=== PATIENT | female | born 1990 | race Caucasian/White ===

== ENCOUNTER 2018-03-23 17:42 | Outpatient (CLI) | payer OTHER ==
[2018-03-23 18:27] VITALS: BP 122/70
[2018-03-23] MEDS ORDERED: STADOL IV PRN (21:27)
[2018-03-23] MEDS ORDERED: LACTATED RINGERS 1,000 ML ONE (21:32)
[2018-03-23] MEDS ORDERED: XYLOCAINE 2% INFILTRATI ONE (21:57)
[2018-03-23] MEDS ORDERED: ZOFRAN IV PRN (21:57)
[2018-03-23] MEDS ORDERED: BRETHINE IVP PRN (21:57)
[2018-03-23] MEDS ORDERED: BRETHINE SUB-Q PRN (21:57)
[2018-03-23] MEDS ORDERED: MINERAL OIL PO PRN (21:57)
[2018-03-23] MEDS ORDERED: ePHEDrine SULFATE IV PRN (21:57)
[2018-03-23] MEDS ORDERED: LACTATED RINGERS 1,000 ML IV SCH (22:00)
[2018-03-23] MEDS ORDERED: PITOCin/NS 30 UNIT/500ML 30 UNITS/500 ML BAG IV SCH ×2 (22:00)
[2018-03-23] MEDS ORDERED: PITOCin/NS 20 UNIT/1000ML DRIP 20 UNITS/1,000 ML BAG IV SCH (22:00)
[2018-03-23] MEDS ORDERED: POLYCILLIN/NS 2 GM/100 ML 2 GM/100 ML BAG IV SCH (22:00)
[2018-03-24] MEDS ORDERED: AMPICILLIN/NS 1 GM/50 ML 1 GM/50 ML BAG IV SCH (02:00)
== END 2018-03-23 22:15 | disposition home or self-care (01) ==
LOC: TRG 17:42 → EDBD 17:42 → TRG 17:43
PROVIDERS: ATTEND Obstetrics & Gynecology
DX: O47.1 False labor at or after 37 completed weeks of gestation (principal); Z3A.38 38 weeks gestation of pregnancy
CPT/HCPCS: 59025; 96360; J7120

== ENCOUNTER 2018-03-24 05:33 | Inpatient (IN) | payer SELFPAY ==
[2018-03-24] MEDS ORDERED: BRETHINE SUB-Q PRN (07:38)
[2018-03-24] MEDS ORDERED: ePHEDrine SULFATE IV PRN ×2 (07:38→09:22)
[2018-03-24] MEDS ORDERED: XYLOCAINE 2% INFILTRATI ONE ×2 (07:38→19:43)
[2018-03-24] MEDS ORDERED: SUBLIMAZE IV PRN (07:38)
[2018-03-24] MEDS ORDERED: BRETHINE IVP PRN (07:38)
[2018-03-24] MEDS ORDERED: POLYCILLIN/NS 2 GM/100 ML 2 GM/100 ML BAG IV ONE (07:38)
[2018-03-24] MEDS ORDERED: STADOL IV PRN (07:38)
[2018-03-24 08:09] LABS: Hematocrit 33.9 % (30.3-42.9); Hemoglobin 11.1 gm/dl (10.1-14.3); Mean Corpuscular HGB Conc 33 % (30-34); Mean Corpuscular Hemoglobin 27 pg (28-32); Mean Corpuscular Volume 82 fl (79-97); Platelet Count 247 K/mm3 (140-440); Red Blood Count 4.12 M/mm3 (3.65-5.03); Red Cell Distribution Width 15.5 % (13.2-15.2)
[2018-03-24] MEDS: LACTATED RINGERS 1,000 ML IV SCH ×3 (08:12→13:05)
[2018-03-24] MEDS ORDERED: NARCAN 2 MG/2 ML IV PRN (09:22)
--- NOTE | 2018-03-24 09:24 | Anesthesia Consultation ---
Anesthesia Consult and Med Hx - Airway Anesthetic Teeth Evaluation: Good ROM Head & Neck: Adequate Mental/Hyoid Distance: Adequate Mallampati Class: Class II Intubation Access Assessment: Good - Pulmonary Exam CTA: Yes - Cardiac Exam Cardiac Exam: RRR - Pre-Operative Health Status ASA Pre-Surgery Classification: ASA2 Proposed Anesthetic Plan: Epidural, Spinal - Pulmonary Hx Asthma: No COPD: No Hx Pneumonia: No - Cardiovascular System Hx Hypertension: No - Central Nervous System Hx Seizures: No Hx Psychiatric Problems: No - Endocrine Hx Renal Disease: No Hx End Stage Renal Disease: No Hx Hypothyroidism: No Hx Hyperthyroidism: No - Hematic Hx Anemia: No Hx Sickle Cell Disease: No - Other Systems Hx Alcohol Use: No
[2018-03-24] MEDS ORDERED: fentaNYL-BUPIV 2 MCG/ML-0.125% 200 MCG/100 ML BAG EPIDURAL SCH (10:00)
[2018-03-24] MEDS: AMPICILLIN/NS 1 GM/50 ML 1 GM/50 ML BAG IV SCH ×2 (12:20→16:19)
--- NOTE | 2018-03-24 12:31 | History and Physical Report ---
History of Present Illness Date of examination: 03/24/18 Date of admission: 03/24/18 05:34 Chief complaint: Contractions History of present illness: 27yo G 1 P 0 at 38 weeks 3 days here with complaint of worsening contractions since 3 am. She reports positive movements and spotting but denies loss of fluid. She received care at [facility] beginning at 10w5d gestation. Her course was complicated by anemia. She was on iron therapy. GBS was positive. Past History Past Medical History: no pertinent history Past Surgical History: no surgical history Family/Genetic History: none Social history: , lives with family, full code - Obstetrical History Expected Date of Delivery: 04/04/18 Actual Gestation: 38 Week(s) 3 Day(s) : 1 Para: 0 Hx # Term Pregnancies: 0 Number of Pregnancies: 0 Spontaneous Abortions: 0 Induced : 0 Number of Living Children: 0 Medications and Allergies Allergies Allergy/AdvReac Type Severity Reaction Status Date / Time No Known Allergies Allergy Verified 03/24/18 05:49 Home Medications Medication Instructions Recorded Confirmed Last Taken Type No Known Home Medications [No 03/23/18 03/24/18 Unknown History Reported Home Medications] Active Meds: Active Medications Butorphanol Tartrate (Stadol) 2 mg IV Q2H PRN PRN Reason: Pain , Severe (7-10) Ephedrine Sulfate (Ephedrine Sulfate) 10 mg IV Q2M PRN PRN Reason: Hypotension Ephedrine Sulfate (Ephedrine Sulfate) 10 mg IV Q2M PRN PRN Reason: Hypotension Fentanyl (Sublimaze) 100 mcg IV Q2H PRN PRN Reason: Labor Pain Lactated Ringer's (Lactated Ringers) 1,000 mls @ 125 mls/hr IV DIRECT RAIN Last Admin: 03/24/18 09:07 Dose: 125 mls/hr Oxytocin/Sodium Chloride (Pitocin/Ns 20 Unit/1000ml Drip) 20 units in 1,000 mls @ 125 mls/hr IV DIRECT RAIN Fentanyl/Bupivacaine/Sodium Chlor (Fentanyl-Bupiv 2 Mcg/Ml-0.125%) 200 mcg in 100 mls @ 12 mls/hr EPIDURAL TITR RAIN; Protocol Last Admin: 03/24/18 10:07 Dose: 12 mls/hr Ampicillin Sodium (Ampicillin/Ns 1 Gm/50 Ml) 1 gm in 50 mls @ 100 mls/hr IV Q4H RAIN Mineral Oil (Mineral Oil) 30 ml PO QHS PRN PRN Reason: Constipation Naloxone HCl (Narcan 2 Mg/2 Ml) 0.2 mg IV Q5M PRN PRN Reason: Respiratory sedation Terbutaline Sulfate (Brethine) 0.25 mg SUB-Q ONCE PRN PRN Reason: Hyperstimulation/Hypertonicity Terbutaline Sulfate (Brethine) 0.25 mg IVP ONCE PRN PRN Reason: Hyperstimulation/Hypertonicity Review of Systems All systems: negative - Vital Signs Vital signs: Vital Signs Temp Pulse Resp BP 98.3 F 81 20 135/74 03/24/18 05:48 03/24/18 05:48 03/24/18 05:48 03/24/18 05:48 Temp Pulse Resp BP Pulse Ox 97.6 F 75 18 114/66 100 03/24/18 08:37 03/24/18 12:26 03/24/18 08:37 03/24/18 12:14 03/24/18 12:26 - Physical Exam Cardiovascular: Regular rate, Normal S1, Normal S2, No murmurs Lungs: Positive: Clear to auscultation, Normal air movement Abdomen: Positive: normal appearance, soft Genitourinary (Female): Positive: normal external genitalia Vulva: both: normal Vagina: Positive: normal moisture Uterus: Positive: normal size, normal contour Anus/Rectum: Positive: normal perianal skin Extremities: Positive: normal - Obstetrical FHR: auscultation normal, category 1 FHR comments: baseline 125, moderate variability, 15x15 accels, no decels Uterine Contraction Monitor Mode: External Cervical Dilatation: 6 (per RN) Cervical Effacement Percentage: 80 (per RN) station: -1 (per RN) Uterine Contraction Frequency (min): 2-6 Uterine Contraction Pattern: Regular Uterine Contraction Intensity: Mild Results Result Diagrams: 03/24/18 07:45 Abnormal lab results 03/24/18 Range/Units 07:45 WBC 16.7 H (4.5-11.0) K/mm3 MCH 27 L (28-32) pg RDW 15.5 H (13.2-15.2) % All other labs normal. Assessment and Plan - Patient Problems (1) 38 weeks gestation of Current Visit: Yes Status: Acute (2) Active labor at term Current Visit: Yes Status: Acute Plan to address problem: Admit to L&D with routine labor orders Anticipate vaginal delivery (3) GBS (group B Streptococcus carrier), +RV culture, currently Current Visit: Yes Status: Acute Plan to address problem: Start ampicillin for GBS prophylaxis
[2018-03-24] MEDS: PITOCin/NS 30 UNIT/500ML 30 UNITS/500 ML BAG IV SCH ×4 (13:00→15:03)
[2018-03-24] MEDS ORDERED: XYLOCAINE MPF 2% ONE (17:19)
[2018-03-24] MEDS ORDERED: MINERAL OIL ONE (18:08)
[2018-03-24] MEDS ORDERED: CYTOTEC ONE (19:33)
[2018-03-24] MEDS: PITOCin/NS 20 UNIT/1000ML DRIP 20 UNITS/1,000 ML BAG IV SCH ×2 (19:33→20:35)
--- NOTE | 2018-03-24 20:30 | Procedure Note ---
OB Delivery Note - Delivery Date of Delivery: 03/24/18 (19:26) Surgeon: LANCE BETTENCOURT (CNM) Estimated blood loss: other (400cc) - Vaginal Delivery presentation: vertex Delivery position: OA Intrapartum events: meconium (light meconium), mult.variable deceleratio ( during second stage pushing) Delivery induction: none Delivery augmentation: rupture of membranes (AROM @ 12:45), pitocin Delivery monitor: external FHT, external uterine Route of delivery: Delivery placenta: spontaneous (19:32) Delivery cord: nuchal cord (x1, reduced after delivery of baby), 3 umbilical vessels Episiotomy: none Delivery laceration: 3rd degree (perineal), vaginal side wall Delivery repair: vicryl Anesthesia: local, epidural Delivery comments: of a vigorous term 7 lbs 15 oz male at 19:26. Tight nuchal cord noted, baby delivered via somersault maneuver and nuchal cord reduced. Umbilical cord double-clamped, cut and baby handed over to awaiting NICU team. Cord blood collected. Spont. delv of placenta at 19:32, [place]-side presenting. Heavy lochia present. Fundal massage and IV Pitocin bolus initiated. 100cc urine straight-catheterized. Fundus F/ML/U. Light lochia. Placenta intact, was discarded. 3rd degree perineal and vaginal side wall laceration noted. Dr. Saeed called for evaluation and repair. Mom and baby in stable condition. - A at 1 minute: 5 at 5 minutes: 8 Gender: Male (7 lbs 15 oz (3592 gm); 20 in)
[2018-03-24] MEDS ORDERED: PHENERGAN PR PRN (21:35)
[2018-03-24] MEDS ORDERED: TUCKS PAD TP PRN (21:35)
[2018-03-24] MEDS ORDERED: BENADRYL PO PRN (21:35)
[2018-03-24] MEDS ORDERED: LANSINOH TP PRN (21:35)
[2018-03-24] MEDS ORDERED: TYLENOL PO PRN (21:35)
[2018-03-24] MEDS ORDERED: MILK OF MAGNESIA PO PRN (21:35)
[2018-03-24] MEDS ORDERED: DULCOLAX PR PRN (21:35)
[2018-03-24] MEDS ORDERED: ZOFRAN IV PRN (21:35)
[2018-03-24] MEDS ORDERED: PHENERGAN PO PRN (21:35)
[2018-03-24] MEDS ORDERED: NORCO 5/325 PO PRN (21:35)
[2018-03-24] MEDS ORDERED: DERMOPLAST TP PRN (21:39)
--- NOTE | 2018-03-24 21:40 | Event Note ---
Date: 03/24/18 Patient is S/P of a live male by nurse utility teller. She sustained a 3rd degree laceration. I came in and examined the patient. She was found in a dorsal lithotomy position. The cervix was examined and was intact. There was a 3rd degree and a right lower vaginal wall lacerations. Repair was done under local anesthesia and fentanyl using 2.0 and 3.0 vicryl sutures. Good hemostasis and good sphincter tone were confirmed. She tolerated the procedure well. She remains stable.
[2018-03-24] MEDS ORDERED: MINERAL OIL PO PRN (22:00)
[2018-03-24] MEDS ORDERED: SODIUM CHLORIDE FLUSH SYRINGE 10 ML IV SCH (22:00)
[2018-03-24] MEDS: COLACE PO SCH (22:10)
[2018-03-24] MEDS: FEOSOL PO SCH (22:10)
[2018-03-24] MEDS: MOTRIN PO SCH (22:11)
[2018-03-25 00:09] LABS: Hematocrit 28.6 % (30.3-42.9); Mean Corpuscular HGB Conc 32 % (30-34); Mean Corpuscular Hemoglobin 26 pg (28-32); Mean Corpuscular Volume 84 fl (79-97); Platelet Count 216 K/mm3 (140-440); Red Blood Count 3.43 M/mm3 (3.65-5.03); Red Cell Distribution Width 15.3 % (13.2-15.2)
[2018-03-25] MEDS: MOTRIN PO SCH ×3 (06:00→22:14)
[2018-03-25 10:30] LABS: Hematocrit 26.9 % (30.3-42.9); Hemoglobin 8.4 gm/dl (10.1-14.3)
--- NOTE | 2018-03-25 10:56 | Progress Note ---
Assessment and Plan - Patient Problems (1) Status post normal vaginal delivery Current Visit: Yes Status: Acute Plan to address problem: PPD 1 - stable Continue routine PP orders Discharge to home 03/26/18 Follow up at [facility] in 6 weeks for PP exam (2) Perineal laceration with delivery, third degree Current Visit: Yes Status: Acute Plan to address problem: Continue ice packs, dermoplast spray and tucks pad (3) Anemia in puerperium, baby delivered during current episode of care Current Visit: Yes Status: Acute Plan to address problem: Asymptomatic Continue iron therapy Subjective - Subjective Date of service: 03/25/18 Principal diagnosis: s/p Normal Spontaneous Vaginal Delivery Interval history: 27yo G 1 P 1 s/p of a viable term male on 03/24/18. She had a 3rd degree perineal laceration that was repaired by Dr. Saeed. Patient reports: appetite normal, voiding normally, pain well controlled, ambulating normally, no bowel movement : doing well, other (breast and bottle feeding) Objective - Vital Signs Latest vital signs: Vital Signs Temp Pulse Resp BP BP Pulse Ox 03/25/18 07:51 98.3 F 92 H 16 108/55 96 03/25/18 05:50 98.2 F 103 H 18 102/73 03/24/18 23:20 98.7 F 101 H 18 111/59 03/24/18 22:43 108 H 118/68 03/24/18 22:40 108 H 118/68 03/24/18 22:28 110 H 126/75 126/75 03/24/18 22:13 96 H 125/67 125/67 03/24/18 22:03 98.2 F 03/24/18 22:01 99 H 127/70 127/70 03/24/18 21:45 142/93 03/24/18 21:44 113 H 142/93 03/24/18 21:28 111 H 121/70 03/24/18 21:13 113 H 122/71 03/24/18 20:58 108 H 127/77 03/24/18 20:44 107 H 125/85 125/85 03/24/18 20:28 113 H 124/66 03/24/18 19:58 115 H 114/59 03/24/18 19:54 115 H 114/59 05/05/18 19:45 116 H 112/55 05/05/18 19:42 116 H 112/55 05/05/18 18:36 105 H 136/76 05/05/18 18:16 98.2 F 93 H 16 130/84 05/05/18 18:06 93 H 130/84 05/05/18 17:37 77 123/75 05/05/18 17:16 95 H 99 05/05/18 17:10 107 H 100 05/05/18 17:06 96 H 137/86 05/05/18 17:05 89 100 05/05/18 17:01 86 100 05/05/18 16:56 91 H 100 05/05/18 16:50 79 100 05/05/18 16:46 88 100 05/05/18 16:41 88 100 05/05/18 16:36 83 116/66 100 05/05/18 16:31 85 100 05/05/18 16:26 77 100 05/05/18 16:21 84 100 05/05/18 16:16 77 100 05/05/18 16:10 83 99 05/05/18 16:06 69 117/62 05/05/18 16:05 70 99 05/05/18 16:01 72 99 05/05/18 15:56 72 99 05/05/18 15:51 68 98 05/05/18 15:45 73 99 05/05/18 15:41 70 99 05/05/18 15:36 69 113/76 05/05/18 15:35 80 99 05/05/18 15:31 69 99 05/05/18 15:25 75 99 05/05/18 15:21 75 99 05/05/18 15:15 70 98 05/05/18 15:11 70 98 05/05/18 15:06 76 98 05/05/18 15:01 76 99 05/05/18 15:00 75 120/72 05/05/18 14:56 72 99 05/05/18 14:50 71 99 05/05/18 14:46 77 118/67 05/05/18 14:45 76 100 05/05/18 14:40 75 99 05/05/18 14:36 76 99 05/05/18 14:31 79 100 05/05/18 14:29 81 118/73 05/05/18 14:26 92 H 100 05/05/18 14:21 84 100 05/05/18 14:16 77 99 05/05/18 14:14 75 114/67 05/05/18 14:11 89 99 05/05/18 14:06 81 99 05/05/18 14:01 84 100 05/05/18 14:00 80 116/69 05/05/18 13:56 77 100 05/05/18 13:51 83 99 05/05/18 13:47 79 118/67 05/05/18 13:46 78 99 05/05/18 13:40 85 100 05/05/18 13:36 82 100 05/05/18 13:31 82 122/77 100 05/05/18 13:26 79 100 05/05/18 13:21 82 100 05/05/18 13:16 87 124/62 99 05/05/18 13:11 83 100 05/05/18 13:06 86 100 05/05/18 13:01 84 100 05/05/18 13:00 96 H 112/65 05/05/18 12:56 87 100 05/05/18 12:51 79 100 05/05/18 12:46 84 108/57 100 05/05/18 12:41 93 H 100 05/05/18 12:36 72 100 05/05/18 12:31 82 100 05/05/18 12:30 81 105/58 05/05/18 12:26 75 100 05/05/18 12:21 70 99 05/05/18 12:16 74 100 05/05/18 12:14 76 114/66 05/05/18 12:11 81 100 05/05/18 12:06 81 97 05/05/18 12:01 85 100 05/05/18 11:59 78 109/63 05/05/18 11:56 72 100 05/05/18 11:51 73 100 05/05/18 11:46 65 107/61 100 05/05/18 11:41 70 100 05/05/18 11:36 74 100 05/05/18 11:31 83 111/56 100 05/05/18 11:26 87 100 05/05/18 11:21 69 99 05/05/18 11:16 68 100 05/05/18 11:15 64 101/55 05/05/18 11:11 60 99 03/24/18 11:06 68 100 03/24/18 11:01 65 106/59 99 03/24/18 10:55 84 99 Intake and Output 03/24/18 03/25/18 03/25/18 23:59 07:59 15:59 Intake Total 129.167 240 Balance 129.167 240 Intake: IV 129.167 PITOCin/NS 20 UNIT/1000ML 129.167 DRIP 20 units In 1,000 ml @ 125 mls/hr IV DIRECT RAIN Rx#:[id number] Oral 240 Other: Total, Intake Amount 240 # Voids Void 1 600 - Exam Cardiovascular: Present: Regular rate, Normal S1, Normal S2, No murmurs Lungs: Present: Clear to auscultation, Normal air movement Abdomen: Present: normal appearance, soft Vulva: both: laceration/episiotomy (Laceration well approximated. Mild vulva edema present) Uterus: Present: normal, firm, fundal height below umbilicus Extremities: Present: normal Deep Tendon Reflex Grade: Normal +2 - Labs Labs: Abnormal lab results 03/25/18 03/25/18 Range/Units 09:34 Unknown WBC 23.0 H (4.5-11.0) K/mm3 RBC 3.43 L (3.65-5.03) M/mm3 Hgb 8.4 L 9.0 L (10.1-14.3) gm/dl Hct 26.9 L 28.6 L (30.3-42.9) % MCH 26 L (28-32) pg RDW 15.3 H (13.2-15.2) %
--- NOTE | 2018-03-25 11:11 | Discharge Summary ---
Providers - Providers Date of Admission: 03/24/18 05:34 Date of discharge: 03/26/18 Attending physician: KARLO SARAH MD Primary care physician: KARLO SARAH MD Hospitalization Reason for admission: active labor, IUP at term Delivery: Episiotomy: none Laceration: 3rd degree (perineal) Other procedures: none complications: none Discharge diagnosis: IUP at term delivered baby: male Hospital course: Uncomplicated Condition at discharge: Stable Disposition: [place]-01 TO HOME OR SELFCARE - Discharge Diagnoses (1) Status post normal vaginal delivery Status: Acute (2) Perineal laceration with delivery, third degree Status: Acute Comment: Sitz baths recommended. Continue dermoplast and tucks pad (3) Anemia in puerperium, baby delivered during current episode of care Status: Acute Comment: Asymptomatic - continue iron therapy Plan - Discharge Medications Prescriptions: Ferrous Sulfate [Feosol 325 MG tab] 325 mg PO BID #60 tablet Ibuprofen [Motrin 600 MG tab] 600 mg PO Q6HR #30 tablet - Provider Discharge Summary Activity: routine, no sex for 6 weeks, no heavy lifting 4 weeks, no strenuous exercise Diet: routine Instructions: routine Additional instructions: [] Smoking cessation referral if applicable(refer to patient education folder for contact #) [] Refer to [facility] Booklet Call your doctor immediately for: * Fever > 100.5 * Heavy vaginal bleeding ( >1 pad per hour) * Severe persistent headache * Shortness of breath * Reddened, hot, painful area to leg or breast * Drainage or odor from incision. * Keep incision clean and dry at all times and follow doctor's instructions regarding bathing/showering - Follow up plan Follow up: KARLO SARAH MD [Primary Care Provider] - 6 Weeks (Follow up at [facility] in 6 weeks for exam)
[2018-03-25] MEDS: COLACE PO SCH ×2 (11:19→22:10)
[2018-03-25] MEDS: PRENATAL VITAMIN PO SCH (11:20)
[2018-03-25] MEDS: FEOSOL PO SCH ×2 (11:20→22:10)
[2018-03-26] MEDS: MOTRIN PO SCH (05:29)
[2018-03-26] MEDS: FEOSOL PO SCH (10:19)
[2018-03-26] MEDS: COLACE PO SCH (10:19)
[2018-03-26] MEDS: PRENATAL VITAMIN PO SCH (10:20)
[2018-03-26 17:13] VITALS: BP 128/78
== END 2018-03-26 17:30 | disposition home or self-care (01) | DRG 775 ==
LOC: TRG 05:33 → LD 05:34 → TRG 05:35 → OB 21:51 → LD 21:54 → OB 22:56 → UNDODISIN 03-25 17:18
PROVIDERS: ADMIT Obstetrics & Gynecology; ATTEND Obstetrics & Gynecology
PROC: 10E0XZZ Delivery of Products of Conception, External Approach (ICD-10-PCS; principal; 2018-03-24)
PROC: 0DQR0ZZ Repair Anal Sphincter, Open Approach (ICD-10-PCS; 2018-03-24)
PROC: 10907ZC Drainage of Amniotic Fluid, Therapeutic from Products of Conception, Via Natural or Artificial Opening (ICD-10-PCS; 2018-03-24)
PROC: 3E0R3BZ Introduction of Anesthetic Agent into Spinal Canal, Percutaneous Approach (ICD-10-PCS; 2018-03-24)
PROC: 00HU33Z Insertion of Infusion Device into Spinal Canal, Percutaneous Approach (ICD-10-PCS; 2018-03-24)
DX: O99.824 Streptococcus B carrier state complicating childbirth (principal); O70.20 Third degree perineal laceration during delivery, unspecified; O77.0 Labor and delivery complicated by meconium in amniotic fluid; O76 Abnormality in fetal heart rate and rhythm complicating labor and delivery; O69.81X0 Labor and delivery complicated by cord around neck, without compression, not applicable or unspecified; O90.81 Anemia of the puerperium; D64.9 Anemia, unspecified; Z3A.38 38 weeks gestation of pregnancy; Z37.0 Single live birth
CPT/HCPCS: 36415; 85014; 85018; 85027; 86592; 86850; 86900; 86901; A6250; J0290; J2590; J3010; J7120

== ENCOUNTER 2019-12-03 14:16 | Outpatient (CLI) | payer BC ==
[2019-12-03 15:50] VITALS: BP 119/73
== END 2019-12-03 16:55 | disposition home or self-care (01) ==
LOC: TRG 14:16
PROVIDERS: ATTEND Obstetrics & Gynecology
DX: O47.1 False labor at or after 37 completed weeks of gestation (principal); Z3A.39 39 weeks gestation of pregnancy
CPT/HCPCS: 59025

== ENCOUNTER 2019-12-04 12:05 | Inpatient (IN) | payer BC ==
[2019-12-04 18:00] LABS: Hematocrit 35.4 % (30.3-42.9); Hemoglobin 11.2 gm/dl (10.1-14.3); Mean Corpuscular HGB Conc 32 % (30-34); Mean Corpuscular Volume 78 fl (79-97); Platelet Count 249 K/mm3 (140-440); Red Blood Count 4.52 M/mm3 (3.65-5.03)
[2019-12-04 18:02] LABS: Red Cell Distribution Width 20.2 % (13.2-15.2)
[2019-12-04] MEDS ORDERED: MINERAL OIL 30 ML ORAL LIQD PO PRN (18:27)
[2019-12-04] MEDS ORDERED: ePHEDrine SULFATE 50 MG/1 ML INJ IV PRN ×2 (18:27→21:11)
[2019-12-04] MEDS ORDERED: TERBUTALINE 1 MG/1 ML INJ IVP PRN (18:27)
[2019-12-04] MEDS ORDERED: TERBUTALINE 1 MG/1 ML INJ SUB-Q PRN (18:27)
[2019-12-04] MEDS ORDERED: NALOXONE 0.4 MG/1 ML INJ IV PRN (18:27)
[2019-12-04] MEDS ORDERED: ONDANSETRON 4 MG/2 ML INJ IV PRN (18:27)
[2019-12-04] MEDS ORDERED: AMPICILLIN/NS 2 GM/100 ML 2 GM/100 ML BAG IV ONE (18:27)
--- NOTE | 2019-12-04 18:36 | History and Physical Report ---
History of Present Illness Date of examination: 12/04/19 Date of admission: 12/04/2019 Chief complaint: Intense Labor Pains History of present illness: Late entry to care at 14 6/7 Weeks, uncomplicated course at [facility]. Past History Past Medical History: no pertinent history Past Surgical History: no surgical history Family/Genetic History: none Social history: no significant social history - Obstetrical History Expected Date of Delivery: 12/08/19 Actual Gestation: 39 Week(s) 3 Day(s) : 2 Para: 1 Hx # Term Pregnancies: 1 Number of Living Children: 1 #1 Infant Gender: Male year: 20 Birthweight: 3.175 kg Method of Delivery: Vaginal Gestational age at delivery: 38 Complications: none Medications and Allergies Allergies Allergy/AdvReac Type Severity Reaction Status Date / Time No Known Allergies Allergy Verified 03/24/18 05:49 Home Medications Medication Instructions Recorded Confirmed Last Taken Type Ferrous Sulfate [Feosol 325 MG tab] 325 mg PO BID #60 tablet 03/25/18 Unknown Rx Ibuprofen [Motrin 600 MG tab] 600 mg PO Q6HR #30 tablet 03/25/18 Unknown Rx Review of Systems All systems: negative - Vital Signs Vital signs: Vital Signs Temp 99.2 F 12/04/19 13:11 Temp Pulse Resp BP Pulse Ox 99 F 108 H 16 115/67 99 12/04/19 17:38 12/04/19 18:29 12/04/19 17:38 12/04/19 17:38 12/04/19 18:29 - Physical Exam Breasts: Positive: normal Cardiovascular: Regular rate Lungs: Positive: Clear to auscultation, Normal air movement Abdomen: Positive: normal appearance, normal bowel sounds Genitourinary (Female): Positive: normal external genitalia, normal perenium Vagina: Positive: normal moisture Uterus: Positive: enlarged Anus/Rectum: Positive: normal perianal skin - Obstetrical FHR: category 1 Uterine Contraction Monitor Mode: External Cervical Dilatation: 4 (VTX, Intact) Cervical Effacement Percentage: 70 station: -2 Uterine Contraction Pattern: Irregular Uterine Tone Measurement Phase: Resting Uterine Contraction Intensity: Mild Results Result Diagrams: 12/04/19 17:22 Abnormal lab results 12/04/19 Range/Units 17:22 WBC 20.3 H (4.5-11.0) K/mm3 MCV 78 L (79-97) fl MCH 25 L (28-32) pg RDW 20.2 H (13.2-15.2) % All other labs normal. Assessment and Plan A: IUP @ 39 3/7 weeks Category I Tracing Early Labor GBS Positive P: Admit to L&D per Routine Orders Pitocin Augmentation GBS Prophylaxis
[2019-12-04] MEDS ORDERED: OXYTOCIN DRIP 30 UNITS/500 ML BAG IV SCH (19:00)
[2019-12-04] MEDS ORDERED: OXYTOCIN 20 UNIT/1000ML DRIP 20 UNITS/1,000 ML BAG IV SCH (19:00)
[2019-12-04] MEDS: LACTATED RINGERS 1,000 ML IV SCH ×2 (19:15→20:56)
[2019-12-04] MEDS ORDERED: LIDOCAINE (2%) 20 MG/1 ML VIAL 20 ML MDV INFILTRATI ONE (19:27)
[2019-12-04] MEDS: BUTORPHANOL 2 MG/1 ML INJ IV PRN ×2 (19:29→21:31)
[2019-12-04 19:46] LABS: Hematocrit 33.8 % (30.3-42.9); Hemoglobin 10.5 gm/dl (10.1-14.3); Mean Corpuscular HGB Conc 31 % (30-34); Mean Corpuscular Volume 79 fl (79-97); Platelet Count 238 K/mm3 (140-440); Red Blood Count 4.28 M/mm3 (3.65-5.03)
[2019-12-04 20:05] LABS: Red Cell Distribution Width 20.8 % (13.2-15.2)
[2019-12-04] MEDS ORDERED: DEXMEDETOMIDINE 200 MCG/2 ML VIAL IV ONE (21:10)
[2019-12-04] MEDS ORDERED: NALOXONE 2 MG/2 ML INJ IV PRN (21:11)
--- NOTE | 2019-12-04 21:11 | Anesthesia Consultation ---
Anesthesia Consult and Med Hx Date of service: 12/04/19 - Airway Anesthetic Teeth Evaluation: Good ROM Head & Neck: Adequate Mental/Hyoid Distance: Adequate Mallampati Class: Class II Intubation Access Assessment: Good - Pulmonary Exam CTA: Yes - Cardiac Exam Cardiac Exam: RRR - Pre-Operative Health Status ASA Pre-Surgery Classification: ASA2, Emergency Proposed Anesthetic Plan: Epidural - Pulmonary Hx Asthma: No COPD: No Hx Pneumonia: No - Cardiovascular System Hx Hypertension: No - Central Nervous System Hx Seizures: No Hx Psychiatric Problems: No - Endocrine Hx Renal Disease: No Hx End Stage Renal Disease: No Hx Hypothyroidism: No Hx Hyperthyroidism: No - Hematic Hx Anemia: No Hx Sickle Cell Disease: No - Other Systems Hx Alcohol Use: No
[2019-12-04] MEDS ORDERED: fentaNYL-BUPIV 2 MCG/ML-0.125% 200 MCG/100 ML BAG EPIDURAL SCH (22:00)
[2019-12-04] MEDS ORDERED: AMPICILLIN/NS 1 GM/50 ML 1 GM/50 ML BAG IV SCH (22:30)
[2019-12-05] MEDS ORDERED: fentaNYL 100 MCG/2 ML INJ ONE (00:02)
[2019-12-05] MEDS ORDERED: fentaNYL 100 MCG/2 ML INJ IV ONE (00:30)
[2019-12-05] MEDS ORDERED: LIDOCAINE (2%) 20 MG/1 ML VIAL 20 ML MDV INFILTRATI ONE (00:35)
[2019-12-05] MEDS ORDERED: diphenhydrAMINE 25 MG CAP PO PRN (00:59)
[2019-12-05] MEDS ORDERED: HYDROcodone/ACETAMINOPHEN 5-325 MG TAB PO PRN (00:59)
[2019-12-05] MEDS ORDERED: LANOLIN/ZINC/DIMETHICONE (LANSINOH) 7 GM TP PRN (00:59)
[2019-12-05] MEDS ORDERED: WITCH HAZEL/ GLYCERIN PAD TP PRN (00:59)
--- NOTE | 2019-12-05 01:08 | Procedure Note ---
OB Delivery Note - Delivery Date of Delivery: 12/05/19 (0032) Surgeon: FIDEL DÍAZ Estimated blood loss: 200cc - Vaginal Delivery presentation: vertex Delivery position: OA Delivery induction: none Delivery augmentation: rupture of membranes, pitocin Delivery monitor: external FHT, external uterine Route of delivery: Delivery placenta: spontaneous Delivery cord: 3 umbilical vessels Episiotomy: none Delivery laceration: 1st degree Delivery repair: vicryl Anesthesia: local Delivery comments: of a live 7'11 male over a 1st degree vaginal laceration under IV pain control with Apgars of 8 and 9 at 0032 on 12/05/2019. Infant directly to maternal abd/chest, skin to skin contact. Spontaneous delivery of placenta complete and intact with [place] side presenting at 0036. Fundus is firm and midline located 5 below the U; Lochia is scant. Delayed cord clamping and cutting; Cord cut by the Father of the Baby. Cord Blood collected; placenta to pathology. Vaginal laceration repaired with 2-[address]-1 under local 2% Lidocaine. GBS prophylaxis X2. - Infant A at 1 minute: 8 at 5 minutes: 9 Infant Gender: Male (7'11)
[2019-12-05] MEDS: IBUPROFEN 600 MG TAB PO SCH ×4 (01:30→23:26)
[2019-12-05] MEDS: PRENATAL VIT27-FE FUMARATE-FOLIC ACID VIT TAB PO SCH (10:20)
[2019-12-05 14:02] LABS: Hemoglobin 9.4 gm/dl (10.1-14.3)
[2019-12-06] MEDS: IBUPROFEN 600 MG TAB PO SCH (05:51)
[2019-12-06] MEDS: PRENATAL VIT27-FE FUMARATE-FOLIC ACID VIT TAB PO SCH (09:48)
[2019-12-06] MEDS ORDERED: FERROUS SULFATE 325 MG TAB PO SCH (10:00)
--- NOTE | 2019-12-06 11:28 | Progress Note ---
Assessment and Plan - Patient Problems (1) Status post normal vaginal delivery Current Visit: No Status: Acute Plan to address problem: PPD 1 - stable Discharge to home today Follow-up at [facility] as needed or in 6 weeks for exam (2) Single live Current Visit: Yes Status: Acute (3) Anemia due to blood loss, acute Current Visit: Yes Status: Acute Plan to address problem: Asymptomatic Iron therapy initiated Subjective - Subjective Date of service: 12/06/19 Principal diagnosis: PPD #1; s/p Interval history: see H&P and OB Delivery Procedure Note Patient reports: appetite normal, voiding normally, pain well controlled, ambulating normally, no dizzy ambulation : doing well, other (breast and bottle feeding) Objective - Vital Signs Latest vital signs: Vital Signs Temp Pulse Resp BP Pulse Ox 12/06/19 08:36 97.4 F L 76 18 101/53 99 12/06/19 05:51 20 12/06/19 01:03 97.9 F 82 18 109/64 99 12/05/19 23:26 20 12/05/19 16:35 87 18 104/60 98 12/05/19 12:25 98.5 F 84 18 100/52 98 Intake and Output 12/05/19 12/06/19 12/06/19 23:59 07:59 15:59 Intake Total 840 120 Balance 840 120 Intake: Oral 480 120 Intake, Free Water 360 Other: Total, Intake Amount 480 120 # Voids Void 1 1 - Exam Abdomen: Present: normal appearance, soft Vulva: both: normal Uterus: Present: normal, firm, fundal height below umbilicus Extremities: Present: normal Comments: scant lochia - Labs Labs: Abnormal lab results 12/05/19 Range/Units 13:41 Hgb 9.4 L (10.1-14.3) gm/dl Hct 29.0 L (30.3-42.9) %
--- NOTE | 2019-12-06 11:31 | Discharge Summary ---
Providers - Providers Date of Admission: 12/04/19 18:27 Date of discharge: 12/06/19 Attending physician: PETE JULES MD Primary care physician: PETE JULES MD Hospitalization Reason for admission: active labor, IUP at term Delivery: Laceration: none Other procedures: none complications: none Discharge diagnosis: IUP at term delivered [place] baby: male Hospital course: Uncomplicated Condition at discharge: Stable Disposition: PR- TO HOME OR SELFCARE - Discharge Diagnoses (1) Status post normal vaginal delivery Status: Acute (2) Single live Status: Acute (3) Anemia due to blood loss, acute Status: Acute Comment: Asymptomatic Continue iron therapy Eat iron-rich foods Plan - Discharge Medications Prescriptions: Ferrous Sulfate [Feosol 325 MG tab] 325 mg PO BID #60 tablet - Provider Discharge Summary Activity: routine, no sex for 6 weeks, no heavy lifting 4 weeks, no strenuous exercise Diet: routine Instructions: routine Additional instructions: [] Smoking cessation referral if applicable(refer to patient education folder for contact #) [] Refer to [facility] Booklet Call your doctor immediately for: * Fever > 100.5 * Heavy vaginal bleeding ( >1 pad per hour) * Severe persistent headache * Shortness of breath * Reddened, hot, painful area to leg or breast * Drainage or odor from incision. * Keep incision clean and dry at all times and follow doctor's instructions regarding bathing/showering - Follow up plan Follow up: PETE JULES MD [Primary Care Provider] - 6 Weeks (Follow-up at [facility] as needed or in 6 weeks for exam)
[2019-12-06 15:30] VITALS: BP 99/54
== END 2019-12-06 15:00 | disposition home or self-care (01) | DRG 806 ==
LOC: LD 12:05 → TRG 12:05 → LD 18:27 → OB 12-05 02:50
PROVIDERS: ADMIT Obstetrics & Gynecology; ATTEND Obstetrics & Gynecology
PROC: 10E0XZZ Delivery of Products of Conception, External Approach (ICD-10-PCS; principal; 2019-12-05)
PROC: 0HQ9XZZ Repair Perineum Skin, External Approach (ICD-10-PCS; 2019-12-05)
DX: O99.824 Streptococcus B carrier state complicating childbirth (principal); D62 Acute posthemorrhagic anemia; Z37.0 Single live birth; Z3A.39 39 weeks gestation of pregnancy; O70.0 First degree perineal laceration during delivery; O99.02 Anemia complicating childbirth
CPT/HCPCS: 36415; 85014; 85018; 85027; 86850; 86900; 86901; 88307; G0378; J0290; J0595; J2590; J3010; J3490; J7120

== ENCOUNTER 2021-09-05 19:01 | Inpatient (IN) | payer BC ==
[2021-09-05] MEDS ORDERED: MINERAL OIL 30 ML ORAL LIQD PO PRN (20:33)
[2021-09-05] MEDS ORDERED: ACETAMINOPHEN 325 MG TAB PO PRN (20:33)
[2021-09-05] MEDS ORDERED: METHYLERGONOVINE MALEATE 0.2 MG/ML VIAL IM PRN (20:33)
[2021-09-05] MEDS ORDERED: ePHEDrine SULFATE 50 MG/1 ML INJ IV PRN ×2 (20:33→22:22)
[2021-09-05] MEDS ORDERED: miSOPROStol 200 MCG TAB PR PRN (20:33)
[2021-09-05] MEDS ORDERED: BUTORPHANOL 2 MG/1 ML INJ IV PRN (20:33)
[2021-09-05] MEDS ORDERED: OXYTOCIN 10 UNIT/1 ML INJ IM PRN (20:33)
[2021-09-05] MEDS ORDERED: TERBUTALINE 1 MG/1 ML INJ SUB-Q PRN (20:33)
[2021-09-05] MEDS ORDERED: LIDOCAINE (2%) 20 MG/1 ML VIAL 20 ML MDV INFILTRATI ONE (20:33)
[2021-09-05] MEDS ORDERED: fentaNYL 100 MCG/2 ML INJ IV PRN (20:33)
[2021-09-05] MEDS ORDERED: CARBOPROST TROMETHAMINE 250 MCG/1 ML INJ IM PRN (20:33)
[2021-09-05] MEDS ORDERED: LOPERAMIDE 2 MG CAP PO PRN (20:33)
[2021-09-05 20:45] LABS: Hematocrit 33.3 % (30.3-42.9); Hemoglobin 11.2 gm/dl (10.1-14.3); Mean Corpuscular HGB Conc 34 % (30-34); Mean Corpuscular Volume 86 fl (79-97); Platelet Count 245 K/mm3 (140-440); Red Blood Count 3.88 M/mm3 (3.65-5.03)
[2021-09-05] MEDS ORDERED: LACTATED RINGERS 1,000 ML IV SCH (20:45)
--- NOTE | 2021-09-05 20:47 | History and Physical Report ---
History of Present Illness Date of examination: 09/05/21 Date of admission: 09/05/2021 Chief complaint: Contractions History of present illness: 31 year old female presents to L&D in active labor. Patient received care at [facility] clinic and records are available. LMP 12/14/20. EDC 09/20/2021. significant for the following: elevated 1 hour sugar test (only 1 abnormal value on 3 hour OGTT). labs are as follows: O+, antibody screen negative, rubella immune, hepatitis B surface antigen negative, HIV negative, RPR nonreactive, gonorrhea negative, chlamydia negative, NIPS negative, AFP negative, carrier screen negative, hemoglobin electrophoresis AA, 1 hour sugar test 153 (3 hour OGTT with only one elevated value), GBS positive. Past History Past Medical History: no pertinent history Past Surgical History: no surgical history [facility] [employer] History: denies: abnormal PAP smear, chlamydia, gonorrhea, hepatitis B, hepatitis C, herpes, HIV, syphilis, trichomonas Family/Genetic History: none Social history: lives with family, full code. denies: smoking, alcohol abuse, prescription drug abuse, IV drug use - Obstetrical History Expected Date of Delivery: 09/20/21 Actual Gestation: 37 Week(s) 6 Day(s) : 3 Para: 2 Hx # Term Pregnancies: 2 Number of Pregnancies: 0 Spontaneous Abortions: 0 Induced : 0 Number of Living Children: 2 Medications and Allergies Allergies Allergy/AdvReac Type Severity Reaction Status Date / Time No Known Allergies Allergy Verified 03/24/18 05:49 Home Medications Medication Instructions Recorded Confirmed Last Taken Type Ferrous Sulfate [Feosol 325 MG tab] 325 mg PO BID #60 tablet 03/25/18 12/05/19 Unknown Rx Ibuprofen [Motrin 600 MG tab] 600 mg PO Q6HR #30 tablet 03/25/18 12/05/19 Unk nown Rx Ferrous Sulfate [Feosol 325 MG tab] 325 mg PO BID #60 tablet 12/06/19 Unknown Rx Active Meds: Active Medications Acetaminophen (Acetaminophen 325 Mg Tab) 650 mg PO Q4H PRN PRN Reason: Pain, Mild (1-3) Butorphanol Tartrate (Butorphanol 2 Mg/1 Ml Inj) 1 mg IV Q2H PRN PRN Reason: Pain, Moderate(4-6) LABOR PAIN Carboprost Tromethamine (Carboprost Tromethamine 250 Mcg/1 Ml Inj) 250 mcg IM ONCE PRN PRN Reason: Uterine Bleeding Ephedrine Sulfate (Ephedrine Sulfate 50 Mg/1 Ml Inj) 10 mg IV Q2M PRN PRN Reason: Hypotension Fentanyl (Fentanyl 100 Mcg/2 Ml Inj) 100 mcg IV Q2H PRN PRN Reason: Pain,Severe (7-10) LABOR PAIN Lactated Ringer's (Lactated Ringers) 1,000 mls @ 125 mls/hr IV DIRECT RAIN Oxytocin/Sodium Chloride (Pitocin/Ns 30 Unit/500ml) 30 units in 500 mls @ 40 mls/hr IV TITR RAIN; Protocol Ampicillin Sodium (Ampicillin/Ns 2 Gm/100 Ml) 2 gm in 100 mls @ 100 mls/hr IV ONCE ONE; Protocol Stop: 09/05/21 21:32 Ampicillin Sodium (Ampicillin/Ns 1 Gm/50 Ml) 1 gm in 50 mls @ 100 mls/hr IV Q4H RAIN; Protocol Lidocaine (Lidocaine (2%) 20 Mg/1 Ml Vial 20 Ml Mdv) 20 ml INFILTRATI ONCE ONE Stop: 09/05/21 20:34 Loperamide HCl (Loperamide 2 Mg Cap) 2 mg PO ONCE PRN PRN Reason: give with Hemabate Methylergonovine Maleate (Methylergonovine Maleate 0.2 Mg/Ml Vial) 0.2 mg IM ONCE PRN PRN Reason: Uterine Bleeding Mineral Oil (Mineral Oil 30 Ml Oral Liqd) 30 ml PO QHS PRN PRN Reason: Constipation Misoprostol (Misoprostol 200 Mcg Tab) 800 mcg NM ONCE PRN PRN Reason: Uterine Bleeding Oxytocin (Oxytocin 10 Unit/1 Ml Inj) 10 unit IM ONCE PRN PRN Reason: Uterine Bleeding Terbutaline Sulfate (Terbutaline 1 Mg/1 Ml Inj) 0.25 mg SUB-Q ONCE PRN PRN Reason: Hyperstimulation/Hypertonicity Review of Systems All systems: negative (contractions) - Vital Signs Vital signs: Vital Signs Pulse Pulse Ox 93 H 98 09/05/21 19:46 09/05/21 19:46 Temp Pulse Resp BP Pulse Ox 98.3 F 80 20 98 09/05/21 20:15 09/05/21 20:36 09/05/21 20:15 09/05/21 20:36 - Physical Exam Abdomen: Positive: normal appearance, soft. Negative: distention, tenderness, guarding, rigidity Genitourinary (Female): Positive: normal external genitalia, normal perenium. Negative: perineal/vulvar lesions Uterus: Positive: enlarged. Negative: tender Anus/Rectum: Positive: normal perianal skin Extremities: Negative: tenderness, edema - Obstetrical FHR: category 1 Uterine Contraction Monitor Mode: External Cervical Dilatation: 6 Cervical Effacement Percentage: 90 station: -1 Uterine Contraction Pattern: Regular Uterine Contraction Intensity: Moderate Results Result Diagrams: 09/05/21 20:17 All other labs normal. Assessment and Plan A: at 37 weeks, 6 days gestation. Active labor. GBS positive. P: Admit. EFM. GBS prophylaxis. Epidural if desired.
[2021-09-05] MEDS ORDERED: AMPICILLIN/NS 2 GM/100 ML 2 GM/100 ML BAG IV ONE (21:00)
[2021-09-05] MEDS ORDERED: OXYTOCIN DRIP 30 UNITS/500 ML BAG IV SCH (21:00)
[2021-09-05] MEDS ORDERED: NALOXONE 2 MG/2 ML INJ IV PRN (22:22)
--- NOTE | 2021-09-05 22:23 | Anesthesia Consultation ---
Anesthesia Consult and Med Hx Date of service: 09/05/21 - Airway Anesthetic Teeth Evaluation: Good ROM Head & Neck: Adequate Mental/Hyoid Distance: Adequate Mallampati Class: Class II Intubation Access Assessment: Probably Good - Pulmonary Exam CTA: Yes - Cardiac Exam Cardiac Exam: RRR - Pre-Operative Health Status ASA Pre-Surgery Classification: ASA2 Proposed Anesthetic Plan: Epidural - Pulmonary Hx Asthma: No COPD: No Hx Pneumonia: No - Cardiovascular System Hx Hypertension: No - Central Nervous System Hx Seizures: No Hx Psychiatric Problems: No - Endocrine Hx Renal Disease: No Hx End Stage Renal Disease: No Hx Hypothyroidism: No Hx Hyperthyroidism: No - Hematic Hx Anemia: No Hx Sickle Cell Disease: No - Other Systems Hx Alcohol Use: No
--- NOTE | 2021-09-05 22:48 | Progress Note ---
Labor Epidural - Labor Epidural Start Time: 22:32 Stop Time: 22:38 Performed by:: CAHRITO SERNA Procedure: Patient is requesting epidural for labor pain. H&P, and labs reviewed. Procedure explained, questions answered, consent obtained. Patient in sitting position with blood pressure cuff and pulse ox on and working. Timeout performed immediately before start of procedure. Sterile chlorahexadine 0.5% prep/drape. 3 mL 1% lidocaine skin wheal at L[3]-L[4]. 17-gauge tuohy epidural needle advanced to [id number] with saline at [7] cm. 25-gauge spinal needle advanced until clear, free-flowing CSF. Intrathecal dexmedetomidine [5] mcg administered and needle removed. Epidural catheter advanced to [12] cm, negative aspiration for blood and csf, negative test dose 3 ml 1.5% lidocaine with epinephrine. Sterile sponge and tegaderm applied, followed by tape reinforcement. Patient tolerated procedure well.
[2021-09-05] MEDS ORDERED: fentaNYL-BUPIV 2 MCG/ML-0.125% 200 MCG/100 ML BAG EPIDURAL SCH (23:00)
[2021-09-06] MEDS ORDERED: AMPICILLIN/NS 1 GM/50 ML 1 GM/50 ML BAG IV SCH (01:00)
[2021-09-06] MEDS ORDERED: MAGNESIUM HYDROXIDE (MOM) ORAL LIQD UDC PO PRN (03:56)
[2021-09-06] MEDS ORDERED: LANOLIN/ZINC/DIMETHICONE (LANSINOH) 7 GM TP PRN (03:56)
[2021-09-06] MEDS ORDERED: WITCH HAZEL/ GLYCERIN PAD TP PRN (03:56)
--- NOTE | 2021-09-06 04:04 | Procedure Note ---
OB Delivery Note - Delivery Date of Delivery: 09/06/21 Surgeon: WILLI KINCAID Estimated blood loss: 300cc - Vaginal Delivery presentation: vertex Delivery position: OA Intrapartum events: none Delivery induction: none Delivery monitor: external FHT, external uterine Delivery placenta: spontaneous Delivery cord: 3 umbilical vessels Episiotomy: none Delivery laceration: 1st degree Delivery repair: vicryl Anesthesia: epidural Delivery comments: Spontaneous vaginal delivery at 03:34 of liveborn female weighing 7 lb 7 oz over first degree laceration with apgars of 8/9. was atraumatic. Baby placed skin to skin with mom immediately after delivery. Baby dried with warm towels and suctioned with bulb syringe. Spontaneous cry and respirations. 3 vessel cord double clamped and cut. Cord blood obtained. Spontaneous delivery of intact placenta and membranes. EBL 300 cc. Pitocin to IV fluids after delivery of placenta. Fundus firm and midline. Pitocin given and rectal cytotec given for uterine atony. Small first degree perineal laceration repaired with 3-0 vicryl. No other lacerations noted. Vaginal sweep negative. Sponge count correct. Mother and baby stable in birthing room.
[2021-09-06] MEDS: IBUPROFEN 600 MG TAB PO SCH (05:47)
[2021-09-06] MEDS: FERROUS SULFATE 325 MG TAB PO SCH ×2 (09:25→21:46)
[2021-09-06] MEDS: DOCUSATE SODIUM 100 MG CAP PO SCH ×2 (09:25→21:46)
[2021-09-06] MEDS: HYDROcodone/ACETAMINOPHEN 5-325 MG TAB PO PRN ×3 (09:25→21:46)
--- NOTE | 2021-09-06 16:54 | Post Anesthesia Evaluation ---
- Post Anesthesia Evaluation Patient Participated: Yes Airway Patent: Yes Stable Respiratory Function: Yes Nausea/Vomiting: No Temp > 96.8F: Yes Pain Manageable: Yes Adequeate Hydration: Yes Anesthesia Complications: No Block Receding Appropriately: Yes
[2021-09-06 18:06] LABS: Hematocrit 30.8 % (30.3-42.9); Hemoglobin 10.6 gm/dl (10.1-14.3)
--- NOTE | 2021-09-07 08:47 | Progress Note ---
Assessment and Plan A: S/P P: Continue routine pp orders Subjective - Subjective Date of service: 09/07/21 Principal diagnosis: s/p Patient reports: appetite normal, voiding normally, pain well controlled, ambulating normally : doing well, bottle feeding Objective - Vital Signs Latest vital signs: Vital Signs Temp Pulse Resp BP BP Pulse Ox Pulse Ox 09/07/21 08:05 97.8 F 68 20 111/56 09/07/21 01:27 98.0 F 68 20 122/55 99 09/06/21 22:46 18 09/06/21 21:46 18 09/06/21 20:00 98 09/06/21 16:32 98.0 F 81 18 117/60 98 09/06/21 12:57 97.4 F L 74 18 95/36 97 Intake and Output 09/06/21 09/07/21 09/07/21 22:59 06:59 14:59 Intake Total 480 240 Output Total 600 Balance -600 480 240 Intake: Oral 240 Intake, Free Water 480 Output: Urine 600 Void 600 Other: Total, Intake Amount 240 Total, Output Amount 600 # Voids Void 1 2 - Exam Breasts: Present: normal Abdomen: Present: normal appearance, soft, normal bowel sounds Vulva: both: normal Uterus: Present: normal, firm, fundal height below umbilicus Extremities: Present: normal Incision: Present: normal, intact
--- NOTE | 2021-09-07 09:24 | Progress Note ---
Assessment and Plan A: S/P P: D/c home today per pt's request Subjective - Subjective Principal diagnosis: s/p Patient reports: appetite normal, voiding normally, pain well controlled, ambulating normally [place]: doing well, bottle feeding Objective - Vital Signs Latest vital signs: Vital Signs Temp Pulse Resp BP BP Pulse Ox Pulse Ox 09/07/21 08:05 97.8 F 68 20 111/56 09/07/21 01:27 98.0 F 68 20 122/55 99 09/06/21 22:46 18 09/06/21 21:46 18 09/06/21 20:00 98 09/06/21 16:32 98.0 F 81 18 117/60 98 09/06/21 12:57 97.4 F L 74 18 95/36 97 Intake and Output 09/06/21 09/07/21 09/07/21 22:59 06:59 14:59 Intake Total 480 240 Output Total 600 Balance -600 480 240 Intake: Oral 240 Intake, Free Water 480 Output: Urine 600 Void 600 Other: Total, Intake Amount 240 Total, Output Amount 600 # Voids Void 1 2 - Exam Breasts: Present: normal Abdomen: Present: normal appearance, soft, normal bowel sounds Vulva: both: normal Uterus: Present: normal, firm, fundal height below umbilicus Extremities: Present: normal Incision: Present: normal, intact
--- NOTE | 2021-09-07 09:29 | Discharge Summary ---
Providers - Providers Date of Admission: 09/05/21 20:33 Date of discharge: 09/07/21 Attending physician: LUIZ DELATORRE JR, MD Primary care physician: LUIZ DELATORRE JR, MD Hospitalization Reason for admission: active labor, IUP at term Delivery: Episiotomy: none Laceration: 1st degree Incision: normal, intact Other procedures: none complications: none Discharge diagnosis: IUP at term delivered [place] baby: female Hospital course: Pt was admitted in active labor and had a w/o pp complications. See H&P, delivery summary, and pp notes. Condition at discharge: Stable Disposition: 01 HOME / SELF CARE / HOMELESS Plan - Discharge Medications Prescriptions: Ibuprofen [Motrin 600 MG tab] 600 mg PO Q6HR PRN #30 tablet PRN Reason: Menstrual Cramps - Provider Discharge Summary Activity: routine, no sex for 6 weeks, no heavy lifting 4 weeks, no strenuous exercise Diet: routine Instructions: routine Additional instructions: [] Smoking cessation referral if applicable(refer to patient education folder for contact #) [] Refer to [facility] Booklet Call your doctor immediately for: * Fever > 100.5 * Heavy vaginal bleeding ( >1 pad per hour) * Severe persistent headache * Shortness of breath * Reddened, hot, painful area to leg or breast * Drainage or odor from incision. * Keep incision clean and dry at all times and follow doctor's instructions regarding bathing/showering - Follow up plan Follow up: LUIZ DELATORRE JR, MD [Primary Care Provider] - 6 Weeks
[2021-09-07] MEDS: FERROUS SULFATE 325 MG TAB PO SCH (10:40)
[2021-09-07] MEDS: DOCUSATE SODIUM 100 MG CAP PO SCH (10:40)
[2021-09-07] MEDS ORDERED: TETANUS,DIPH,PERTUSS(ACELL) VACCINE 0.5 ML SYRINGE IM ONE (11:00)
[2021-09-07] MEDS ORDERED: FLU VACC QUAD 2021-22(6MOS UP)/PF 60 MCG/0.5 ML SYRINGE IM ONE (11:00)
[2021-09-07] MEDS: IBUPROFEN 600 MG TAB PO SCH (12:27)
[2021-09-07 12:51] VITALS: BP 116/48
== END 2021-09-07 15:12 | disposition home or self-care (01) | DRG 807 ==
LOC: TRG 19:01 → LD 20:33 → TRG 20:33 → LD 21:12 → OB 09-06 05:35
PROVIDERS: ADMIT Obstetrics & Gynecology; ATTEND Obstetrics & Gynecology
PROC: 10E0XZZ Delivery of Products of Conception, External Approach (ICD-10-PCS; principal; 2021-09-06)
PROC: 3E0R3BZ Introduction of Anesthetic Agent into Spinal Canal, Percutaneous Approach (ICD-10-PCS; 2021-09-06)
PROC: 00HU33Z Insertion of Infusion Device into Spinal Canal, Percutaneous Approach (ICD-10-PCS; 2021-09-06)
PROC: 0HQ9XZZ Repair Perineum Skin, External Approach (ICD-10-PCS; 2021-09-06)
PROC: 3E0234Z Introduction of Serum, Toxoid and Vaccine into Muscle, Percutaneous Approach (ICD-10-PCS; 2021-09-07)
DX: O99.824 Streptococcus B carrier state complicating childbirth (principal); Z37.0 Single live birth; Z3A.37 37 weeks gestation of pregnancy; Z23 Encounter for immunization; Z20.822 Contact with and (suspected) exposure to COVID-19; O70.0 First degree perineal laceration during delivery
CPT/HCPCS: 36415; 59025; 85014; 85018; 85027; 86592; 86850; 86900; 86901; 90471; 90686; 90715; G0378; G0008; J0290; J2590; J7120; U0003